=== PATIENT | male | born 1990 | race Caucasian/White ===

== ENCOUNTER 2017-02-25 10:31 | Outpatient (CLI) | payer OTHER ==
[2017-02-25 10:47] LABS: #Basophils 0.1 thou/uL (0.0-0.2); #Eosinphils 0.1 thou/uL (0.0-0.7); #Lymphocytes 1.9 thou/uL (1.20-3.40); #Monocytes 0.6 thou/uL (0.11-0.59); %Basophils 1.1 % (0.0-1.0); %Eosinophils 2.6 % (0.0-10.0); %Lymphocytes 33.9 % (21.0-51.0); %Monocytes 9.7 % (0.0-10.0); %Neutrophils 52.7 % (42.0-75.0); Hemoglobin 15.4 g/dL (14.0-18.0); Mean Corpuscular HGB CONC 34.2 g/dL (32.0-36.0); Mean Corpuscular Hemoglobin 29.5 pg (27.0-31.0); Mean Corpuscular Volume 86.4 fl (80.0-94.0); Mean Platelet Volume 7.1 fL (7.4-10.4); Platelet Count 189 thou/uL (130-400); RBC Distribution Width 12.5 % (11.5-14.5); Red Blood Cell (RBC) Count 5.21 mill/uL (4.70-6.10); White Blood Cell (WBC) Count 5.6 thou/uL (4.8-10.8)
--- NOTE | 2017-02-25 11:10 | RAD ---
PA AND LATERAL CHEST: Indication: Shortness of breath. Comparison: None. FINDINGS: The lungs are clear. Cardiomediastinal silhouette is normal. There is mild spondylosis of the thorac ic spine. IMPRESSION: No acute osseous abnormality. POS: [facility]
[2017-02-25 11:29] LABS: ALT (SGPT) 34 U/L (8-55); AST (SGOT) 23 U/L (5-34); Albumin 4.1 g/dL (3.5-5.0); Alkaline Phosphatase 66 U/L (40-150); Anion Gap 11 mmol/L (10-20); BUN (Urea Nitrogen) 14 mg/dL (8.9-20.6); Bilirubin, Total 0.6 mg/dL (0.2-1.2); Calc. Creatinine Clearance 0 mL/min (70-130); Calcium 9.3 mg/dL (7.8-10.44); Carbon Dioxide 25 mmol/L (22-29); Chloride 107 mmol/L (98-107); Estimated GFR-MDRD 84; Globulin 3.2 g/dL (2.4-3.5); Glucose 85 mg/dL (70-105); Potassium 4.7 mmol/L (3.5-5.1); Protein, Total 7.3 g/dL (6.0-8.3); Sodium 138 mmol/L (136-145)
[2017-02-25 11:45] LABS: Free T4 (Free Thyroxine) 0.98 ng/dL (0.70-1.48); Thyroid Stimulating Hormone 1.1445 uIU/mL (0.35-4.94)
== END 2017-02-25 10:32 | disposition home or self-care (01) ==
LOC: MADLABBHPM 10:31
PROVIDERS: ATTEND Family Medicine
DX: R06.02 Shortness of breath (principal)
CPT/HCPCS: 36415; 71020; 80053; 84439; 84443; 85025; 93005; 93010

== ENCOUNTER 2019-06-16 10:00 | Outpatient (CLI) | payer MEDICAID ==
[2019-06-16 10:44] LABS: RBC/HPF 0-3 HPF (0-3)
[2019-06-16 10:45] LABS: Bacteria/HPF Rare-Few HPF (None Seen); WBC/HPF 0-3 HPF (0-3)
== END 2019-06-16 10:01 | disposition home or self-care (01) ==
LOC: MADLABBHPM 10:00
PROVIDERS: ATTEND Nurse Practitioner Family
DX: N50.811 Right testicular pain (principal)
CPT/HCPCS: 81015; 87077; 87086; 87186; 87491; 87591